=== PATIENT | male | born 1980 | race Two or more races ===

== ENCOUNTER 2022-05-05 17:26 | Inpatient (IN) | payer MEDICAID ==
[~2022-05-05] VITALS: Ht 167.6 cm; Wt 69.9 kg
[2022-05-05] MEDS ORDERED: SODIUM CHLORIDE 0.9% 1,000 ML IV ONE (18:30)
[2022-05-05 18:50] LABS: CLARITY URINE CLEAR (CLEAR); COLOR URINE YELLOW (YELLOW); KETONES URINE 2+ (NEGATIVE); LEUKOCYTE ESTERASE URINE NEGATIVE (NEGATIVE); NITRITE URINE NEGATIVE (NEGATIVE); OCCULT BLOOD URINE NEGATIVE (NEGATIVE); PH URINE 6.5 (4.5-8.0); PROTEIN URINE TRACE (NEGATIVE); SPECIFIC GRAVITY URINE 1.021 (1.005-1.030); UROBILINOGEN URINE 0.2 E.U./dL (0.2-1.0)
[2022-05-05 19:06] LABS: BASOPHILS % 0.3 % (0.0-2.0); EOSINOPHILS % 0.2 % (0.0-5.0); HEMATOCRIT. 44.6 % (42.0-52.0); HEMOGLOBIN. 15.8 g/dL (14.0-18.0); MEAN CORPUSCULAR HEMOGLOBIN 31.6 pg (28.0-32.0); MEAN CORPUSCULAR VOLUME 88.9 fL (80.0-94.0); MEAN PLATELET VOLUME 7.7 fl (7.4-10.4); MONOCYTES % 3.7 % (2.0-8.0); NEUTROPHILS % 72.8 % (40.0-76.0); PLATELET 191 x1000/uL (130-400); RED BLOOD CELL COUNT 5.02 mill/uL (4.7-6.1)
[2022-05-05 19:15] LABS: CHLORIDE 95 mEq/L (98-107)
[2022-05-05 19:20] LABS: ETHANOL BLOOD 272 mg/dL; PHOSPHORUS 1.6 mg/dL (2.5-4.9)
[2022-05-05 19:23] LABS: BETA HYDROXYBUTYRATE 2.6 mMol/L (0.0-0.3)
[2022-05-05] MEDS ORDERED: POTASSIUM CHLORIDE 20MEQ TABLET SR PO ONE ×2 (19:45)
[2022-05-05] MEDS ORDERED: INSULIN REGULAR (DRIP) 100 UNITS in SODIUM CHLORIDE 0.9% 100 ML IV ONE (19:45)
[2022-05-05 19:53] LABS: BG BASE EXCESS -2.3 mmol/L (-2.0-2.0); BG CARBOXYHEMOGLOBIN 0.6 % (0.5-1.5); BG DEOXYHEMOGLOBIN 4.2 % (0.0-5.0); BG HCO3 ACT 22.5 mmol/L (22.0-26.0); BG METHEMOGLOBIN 0.3 % (0.0-1.5); BG OXYGEN SATURATION 95.8 % (92.0-98.5); BG OXYHEMOGLOBIN 94.9 % (94.0-97.0); BG PCO2 38.9 mmHg (35.0-45.0); BG PO2 87.5 mmHg (75.0-100.0); BG TOTAL HEMOGLOBIN 16.1 g/dL (12.0-18.0)
[2022-05-05] MEDS ORDERED: INSULIN REGULAR 100U/100ML PMX 100 ML IV NR (20:00)
[2022-05-05] MEDS ORDERED: POTASSIUM CHLORIDE 10MEQ TABLET SR PO NR (20:30)
[2022-05-05] MEDS: SODIUM CHLORIDE 0.9% 1,000 ML IV SCH (23:00)
[2022-05-05] MEDS ORDERED: CLONIDINE 0.1MG TABLET PO PRN (23:00)
[2022-05-05] MEDS ORDERED: ACETAMINOPHEN 325MG TABLET PO PRN (23:00)
[2022-05-05] MEDS ORDERED: PIPERACILLIN/TAZ 3.375G PREMIX 50 ML IV SCH (23:00)
[2022-05-06] MEDS ORDERED: PIPERACILLIN/TAZOBACTAM 3.375G in DEXT 5% WATER 50ML IV SCH ×2
[2022-05-06] MEDS: ONDANSETRON HCL 4MG/2ML INJ IV PRN ×2 (03:25→12:08)
[2022-05-06 03:39] LABS: CHLORIDE 101 mEq/L (98-107)
[2022-05-06] MEDS: KCL 20MEQ/100ML X 2 FOR TOTAL KCL 40MEQ/200ML IV SCH ×2 (05:22→07:14)
[2022-05-06] MEDS: SODIUM CHLORIDE 0.9% 1,000 ML IV SCH ×2 (07:14→15:07)
[2022-05-06 08:04] LABS: CHLORIDE 102 mEq/L (98-107)
[2022-05-06] MEDS ORDERED: DEXTROSE 50% WATER 50ML SYRINGE IV PRN (09:00)
[2022-05-06] MEDS: ENOXAPARIN 40MG/0.4ML SYR SUBCUT SCH (09:24)
[2022-05-06] MEDS: INSULIN GLARGINE 100 UNITS/ML SUBCUT SCH (09:24)
[2022-05-06 09:55] VITALS: BP 142/89
[2022-05-06] MEDS ORDERED: METF-874 PO (10:37)
[2022-05-06] MEDS: BLOOD SUGAR DIAGNOSTIC STRIP TEST SCH ×3 (11:41→21:30)
[2022-05-06 12:00] VITALS: BP 143/94
[2022-05-06] MEDS: INSULIN LISPRO 100 UNITS/ML SUBCUT SCH ×3 (12:09→22:22)
[2022-05-06] MEDS: PIPERACILLIN/TAZOBACTAM 3.375G in DEXT 5% WATER 50ML IV SCH ×2 (13:13→22:49)
[2022-05-06 15:59] VITALS: BP 131/85
[2022-05-06 20:00] VITALS: BP 126/81
[2022-05-06] MEDS: GLIPIZIDE 5MG TABLET PO SCH (22:22)
[2022-05-07] VITALS: BP 116/83
[2022-05-07] MEDS: SODIUM CHLORIDE 0.9% 1,000 ML IV SCH ×3 (00:06→15:00)
[2022-05-07 04:00] VITALS: BP_SYST 102; BP_SYST 123; BP_DIAS 52; BP_DIAS 79
[2022-05-07] MEDS: PIPERACILLIN/TAZOBACTAM 3.375G in DEXT 5% WATER 50ML IV SCH ×2 (05:04→14:22)
[2022-05-07] MEDS: BLOOD SUGAR DIAGNOSTIC STRIP TEST SCH ×3 (05:40→17:00)
[2022-05-07] MEDS: GLIPIZIDE 5MG TABLET PO SCH (06:09)
[2022-05-07 06:10] LABS: CHLORIDE 100 mEq/L (98-107)
[2022-05-07] MEDS: INSULIN LISPRO 100 UNITS/ML SUBCUT SCH ×3 (06:10→17:25)
[2022-05-07 06:34] LABS: BASOPHILS % 0.4 % (0.0-2.0); EOSINOPHILS % 2.4 % (0.0-5.0); HEMOGLOBIN. 15.2 g/dL (14.0-18.0); LYMPHOCYTES % 33.1 % (20.0-50.0); MEAN CORPUSCULAR VOLUME 90.5 fL (80.0-94.0); MEAN PLATELET VOLUME 8.3 fl (7.4-10.4); MONOCYTES % 6.7 % (2.0-8.0); NEUTROPHILS % 57.4 % (40.0-76.0); PLATELET 115 x1000/uL (130-400); RED BLOOD CELL COUNT 4.75 mill/uL (4.7-6.1); RED CELL DISTRIBUTION WIDTH 12.9 % (11.6-14.6)
[2022-05-07 08:00] VITALS: BP 118/75
[2022-05-07] MEDS: ENOXAPARIN 40MG/0.4ML SYR SUBCUT SCH (08:12)
[2022-05-07] MEDS: INSULIN GLARGINE 100 UNITS/ML SUBCUT SCH (09:31)
[2022-05-07] MEDS ORDERED: THIAMINE HCL 100MG TABLET PO SCH (10:00)
[2022-05-07] MEDS ORDERED: PANTOPRAZOLE SODIUM 40 MG/VIAL IV SCH (10:00)
[2022-05-07] MEDS ORDERED: POTASSIUM CHLORIDE INJ 40 MEQ in DEXT 5% WATER 250 ML IV NR (11:00)
[2022-05-07 12:00] VITALS: BP 114/79
[2022-05-07] MEDS ORDERED: INSU100I24 SQ (13:40)
[2022-05-07] MEDS ORDERED: THIA100T88 MT (13:40)
[2022-05-07] MEDS ORDERED: GLIP5TAB12 MT (13:40)
[2022-05-07 14:13] VITALS: BP 121/92
[2022-05-07 16:00] VITALS: BP 121/92
== END 2022-05-07 18:10 | disposition home or self-care (01) | DRG 720 ==
LOC: ER 17:26 → MICUSO 23:38 → 7WST 05-06 09:52
PROVIDERS: ADMIT Internal Medicine; ATTEND Internal Medicine
DX: A41.9 Sepsis, unspecified organism (principal); E11.10 Type 2 diabetes mellitus with ketoacidosis without coma; E11.65 Type 2 diabetes mellitus with hyperglycemia; F10.129 Alcohol abuse with intoxication, unspecified; Z91.19 Patient's noncompliance with other medical treatment and regimen; Z79.899 Other long term (current) drug therapy
CPT/HCPCS: 36415; 36600; 71045; 80048; 80053; 80320; 81003; 82010; 82375; 82805; 82962; 83036; 83605; 83735; 84100; 85025; 93005; 93970; 99291; C9113; J1650; J1815; J2405; J2543; J3480; J7030; J7050; J7060; G0480

== ENCOUNTER 2024-08-23 22:03 | Emergency (ER) | payer MEDICAID, OTHER ==
[~2024-08-23] VITALS: Ht 167.6 cm; Wt 82.0 kg
[~2024-08-23 22:03] MED LIST: GLIP5TAB22 MT; INSU100I24 SQ; METF-1150 PO; THIA100T88 MT
[2024-08-23 22:15] VITALS: TEMP 98; O2SAT 98
[2024-08-23 23:13] LABS: BASOPHILS % 0.4 % (0.0-2.0); EOSINOPHILS % 3.7 % (0.0-5.0); HEMATOCRIT. 44.2 % (42.0-52.0); HEMOGLOBIN. 15.4 g/dL (14.0-18.0); LYMPHOCYTES % 30.1 % (20.0-50.0); MEAN CORPUSCULAR HEMOGLOBIN 31.7 pg (28.0-32.0); MEAN CORPUSCULAR HGB CONC 34.9 g/dL (31.0-37.0); MEAN PLATELET VOLUME 8.1 fl (7.4-10.4); MONOCYTES % 6.6 % (2.0-8.0); NEUTROPHILS % 59.2 % (40.0-76.0); PLATELET 242 x1000/uL (130-400); RED BLOOD CELL COUNT 4.86 mill/uL (4.7-6.1); RED CELL DISTRIBUTION WIDTH 13.3 % (11.6-14.6); WHITE BLOOD COUNT 8.9 x1000/uL (4.5-11.0)
[2024-08-23 23:16] LABS: CHLORIDE 103 mEq/L (98-107); POTASSIUM 3.7 mEq/L (3.5-5.1); SODIUM 139 mEq/L (136-145)
[2024-08-23 23:17] LABS: CALCIUM 9.5 mg/dL (8.7-10.4); CARBON DIOXIDE 27 mEq/L (21-32)
[2024-08-23 23:22] LABS: CREATININE 0.8 mg/dL (0.6-1.3); GLUCOSE 192 mg/dL (70-105); UREA NITROGEN BLOOD 20 mg/dL (9-23)
[2024-08-23 23:27] LABS: TROPONIN I HIGH SENSITIVITY < 4 ng/L (3.0-53)
[2024-08-24] MEDS ORDERED: IBUP-2029 MT (04:50)
[2024-08-24] MEDS ORDERED: GABA-529 MT (04:50)
[2024-08-24 05:47] VITALS: BP 123/87; PULSE 71; RESP 18; O2SAT 99
== END 2024-08-24 05:48 | disposition home or self-care (01) ==
LOC: ER 22:03
DX: R07.89 Other chest pain (principal); E11.9 Type 2 diabetes mellitus without complications; F10.20 Alcohol dependence, uncomplicated; Z79.899 Other long term (current) drug therapy; Y90.9 Presence of alcohol in blood, level not specified
CPT/HCPCS: 36415; 71045; 80048; 84484; 85025; 93005; 99285